=== PATIENT | female | born 1935 | race Caucasian/White ===

== ENCOUNTER 2021-05-25 09:52 | Inpatient (IN) ==
[2021-05-25] MEDS ORDERED: Ketorolac 30 MG/ML VIAL IVP ONE (10:21)
[2021-05-25 10:51] LABS: Hematocrit 37.2 % (35.3-44.9); Hemoglobin 12.5 g/dL (11.5-15.4); Mean Corpuscular HGB Conc 33.6 g/dL (31.6-35.5); Mean Corpuscular Hemoglobin 31.4 pg (28.0-33.3); Mean Corpuscular Volume 93.5 fL (83.0-100.0); Mean Platelet Volume 11.5 fL (9.4-12.4); Platelet Count 182 K/mcL (140-400); Red Blood Count 3.98 M/mcL (3.82-4.97); Red Cell Distribution Width 13.7 % (11.5-14.5)
[2021-05-25 11:14] LABS: Calcium 8.4 mg/dL (8.6-10.3); Potassium 4.3 mEq/L (3.5-5.1); Troponin I 0.03 ng/mL (< 0.04)
[2021-05-25 11:21] LABS: Eosinophils # 0.2 K/mcL (0.0-0.6); Monocytes # 0.4 K/mcL (0.0-1.3); Neutrophils # 2.5 K/mcL (1.6-8.9)
[2021-05-25 11:25] LABS: Platelet Estimate Normal (Normal); Reactive Lymphocytes Present (Not Present)
[2021-05-25 11:26] LABS: Large Platelets Present (Not Present)
[2021-05-25 11:29] LABS: Influenza A PCR Negative (Negative); Influenza B PCR Negative (Negative); Resp. Syncytial Virus PCR Negative (Negative)
[2021-05-25 11:36] LABS: SARS-CoV-2 by PCR (In House) Positive (Negative)
[2021-05-25] MEDS ORDERED: Azithromycin 250 MG TABLET PO ONE (11:39)
[2021-05-25] MEDS ORDERED: 0.9 % Sodium Chloride 1,000 ML IVC ONE (11:40)
[2021-05-25] MEDS ORDERED: Naloxone 0.4 MG/ML INJ IVP PRN (11:52)
[2021-05-25 13:01] LABS: Albumin 3.5 g/dL (3.5-5.7); Albumin/Globulin Ratio 1.1 (1.1-2.2); Bilirubin,Indirect 0.4 mg/dL (0.0-1.0); Bilirubin,Total 0.4 mg/dL (0.3-1.0); Globulin 3.3 g/dL (2.4-3.5); Total Protein 6.8 g/dL (6.4-8.9)
[2021-05-25 13:14] LABS: Bilirubin,Urine Negative (Negative); Blood,Urine Trace (Negative); Clarity,Urine Clear (Clear); Color,Urine Yellow (Yellow); Glucose,Urine (UA) Normal (Normal); Hyaline Casts,Urine Few per lpf (None Seen); Ketones,Urine Negative (Negative); Leukocyte Esterase,Urine Negative (Negative); Mucus,Urine Few per lpf (None-Few); Nitrite,Urine Negative (Negative); Protein,Urine 100 mg/dL (Neg-Trace); RBC,Urine 0-3 per hpf (0-3); Specific Gravity,Urine 1.026 (1.010-1.025); Squamous Epithelial Cell,Urine Few per hpf (None-Few); Urobilinogen,Urine Normal (Normal)
[2021-05-25] MEDS: *HR* Heparin 5,000 UNIT/ML VIAL SQ SCH (18:18)
[2021-05-26 02:07] LABS: Hematocrit 36.4 % (35.3-44.9); Immature Granulocytes % 0.8 % (0-4); Lymphocytes # 0.7 K/mcL (0.6-4.6); Lymphocytes % 20.5 %; Mean Corpuscular Hemoglobin 31.3 pg (28.0-33.3); Mean Corpuscular Volume 94.8 fL (83.0-100.0); Mean Platelet Volume 11.9 fL (9.4-12.4); Monocytes # 0.3 K/mcL (0.0-1.3); Monocytes % 9.3 %; Neutrophils # 2.5 K/mcL (1.6-8.9); Platelet Count 195 K/mcL (140-400); Red Blood Count 3.84 M/mcL (3.82-4.97); Red Cell Distribution Width 13.7 % (11.5-14.5); Segmented Neutrophils % 69.4 %; White Blood Count 3.6 K/mcL (4.3-11.1)
[2021-05-26 02:38] LABS: Albumin 3.3 g/dL (3.5-5.7); Albumin/Globulin Ratio 1.1 (1.1-2.2); Bilirubin,Total 0.3 mg/dL (0.3-1.0); Calcium 8.3 mg/dL (8.6-10.3); Globulin 3.1 g/dL (2.4-3.5); Phosphorous 3.8 mg/dL (2.7-4.5); Potassium 5.5 mEq/L (3.5-5.1); Total Protein 6.4 g/dL (6.4-8.9)
[2021-05-26 03:02] LABS: Platelet Estimate Normal (Normal)
[2021-05-26] MEDS: *HR* Heparin 5,000 UNIT/ML VIAL SQ SCH ×2 (05:29→18:09)
[2021-05-26] MEDS: Dexamethasone Sodium Phos/PF 10 MG/ML VIAL IVP SCH (09:10)
[2021-05-26] MEDS ORDERED: Remdesivir 200 MG in 0.9 % Sodium Chloride 100 ML IVPB ONE (13:53)
[2021-05-26] MEDS ORDERED: SODIUM ZIRCONIUM CYCLOSILICATE 5 GM POWD.PACK PO ONE (17:00)
[2021-05-27] MEDS: *HR* Heparin 5,000 UNIT/ML VIAL SQ SCH ×2 (05:23→17:04)
[2021-05-27 06:38] LABS: Hematocrit 40.6 % (35.3-44.9); Hemoglobin 13.3 g/dL (11.5-15.4); Mean Corpuscular HGB Conc 32.8 g/dL (31.6-35.5); Mean Corpuscular Hemoglobin 30.3 pg (28.0-33.3); Mean Corpuscular Volume 92.5 fL (83.0-100.0); Mean Platelet Volume 11.5 fL (9.4-12.4); Platelet Count 268 K/mcL (140-400); Red Blood Count 4.39 M/mcL (3.82-4.97); Red Cell Distribution Width 13.4 % (11.5-14.5)
[2021-05-27 06:39] LABS: White Blood Count 9.4 K/mcL (4.3-11.1)
[2021-05-27 07:02] LABS: Albumin 3.5 g/dL (3.5-5.7); Bilirubin,Total 0.4 mg/dL (0.3-1.0); Calcium 9.1 mg/dL (8.6-10.3); Globulin 3.5 g/dL (2.4-3.5)
[2021-05-27] MEDS ORDERED: Perflutren Lipid Microsphere 1.3 ML in 0.9 % Sodium Chloride 8.7 ML IVP PRN (09:39)
[2021-05-27] MEDS: Dexamethasone Sodium Phos/PF 10 MG/ML VIAL IVP SCH (09:57)
[2021-05-27] MEDS: Remdesivir 100 MG in 0.9 % Sodium Chloride 100 ML IVPB SCH (13:09)
[2021-05-27] MEDS: Melatonin 3 MG TABLET PO PRN (20:24)
[2021-05-28] MEDS: *HR* Heparin 5,000 UNIT/ML VIAL SQ SCH ×2 (05:56→17:09)
[2021-05-28 06:09] LABS: Hematocrit 43.9 % (35.3-44.9); Hemoglobin 14.3 g/dL (11.5-15.4); Mean Corpuscular HGB Conc 32.6 g/dL (31.6-35.5); Mean Corpuscular Hemoglobin 30.2 pg (28.0-33.3); Mean Corpuscular Volume 92.8 fL (83.0-100.0); Mean Platelet Volume 11.4 fL (9.4-12.4); Platelet Count 299 K/mcL (140-400); Red Blood Count 4.73 M/mcL (3.82-4.97); Red Cell Distribution Width 13.5 % (11.5-14.5); White Blood Count 11.2 K/mcL (4.3-11.1)
[2021-05-28] MEDS ORDERED: Ketorolac 30 MG/ML VIAL IVP ONE (06:12)
[2021-05-28 06:33] LABS: Albumin 3.8 g/dL (3.5-5.7); Bilirubin,Total 0.6 mg/dL (0.3-1.0); Calcium 9.4 mg/dL (8.6-10.3); Globulin 3.7 g/dL (2.4-3.5); Potassium 4.7 mEq/L (3.5-5.1); Total Protein 7.5 g/dL (6.4-8.9)
[2021-05-28] MEDS: Dexamethasone Sodium Phos/PF 10 MG/ML VIAL IVP SCH (08:40)
[2021-05-28] MEDS: Remdesivir 100 MG in 0.9 % Sodium Chloride 100 ML IVPB SCH (14:45)
[2021-05-28] MEDS: Melatonin 3 MG TABLET PO PRN (22:21)
[2021-05-29 02:11] LABS: Hematocrit 45.7 % (35.3-44.9); Hemoglobin 14.7 g/dL (11.5-15.4); Mean Corpuscular HGB Conc 32.2 g/dL (31.6-35.5); Mean Corpuscular Hemoglobin 30.2 pg (28.0-33.3); Mean Corpuscular Volume 93.8 fL (83.0-100.0); Mean Platelet Volume 11.4 fL (9.4-12.4); Platelet Count 304 K/mcL (140-400); Red Blood Count 4.87 M/mcL (3.82-4.97); Red Cell Distribution Width 13.5 % (11.5-14.5); White Blood Count 10.4 K/mcL (4.3-11.1)
[2021-05-29 02:31] LABS: Albumin 3.7 g/dL (3.5-5.7); Bilirubin,Total 0.7 mg/dL (0.3-1.0); Calcium 9.2 mg/dL (8.6-10.3); Globulin 3.7 g/dL (2.4-3.5); Potassium 5.7 mEq/L (3.5-5.1); Total Protein 7.4 g/dL (6.4-8.9)
[2021-05-29] MEDS: *HR* Heparin 5,000 UNIT/ML VIAL SQ SCH ×2 (05:40→16:11)
[2021-05-29] MEDS ORDERED: SODIUM ZIRCONIUM CYCLOSILICATE 5 GM POWD.PACK PO ONE (06:22)
[2021-05-29] MEDS ORDERED: Furosemide 20 MG/2 ML VIAL IVP SCH (09:00)
[2021-05-29] MEDS: Dexamethasone Sodium Phos/PF 10 MG/ML VIAL IVP SCH (09:22)
[2021-05-29 14:54] LABS: Calcium 9.3 mg/dL (8.6-10.3); Potassium 4.7 mEq/L (3.5-5.1)
[2021-05-29] MEDS ORDERED: *HR* Promethazine 25 MG/ML VIAL IM PRN (15:45)
[2021-05-29] MEDS: Ondansetron 4 MG/2 ML VIAL IVP PRN (16:11)
[2021-05-30] MEDS: Ondansetron 4 MG/2 ML VIAL IVP PRN (00:09)
[2021-05-30] MEDS: *HR* Heparin 5,000 UNIT/ML VIAL SQ SCH ×2 (05:20→17:56)
[2021-05-30 06:19] LABS: Hematocrit 47.9 % (35.3-44.9); Hemoglobin 15.6 g/dL (11.5-15.4); Mean Corpuscular HGB Conc 32.6 g/dL (31.6-35.5); Mean Corpuscular Hemoglobin 30.6 pg (28.0-33.3); Mean Corpuscular Volume 94.1 fL (83.0-100.0); Mean Platelet Volume 11.9 fL (9.4-12.4); Platelet Count 349 K/mcL (140-400); Red Blood Count 5.09 M/mcL (3.82-4.97); Red Cell Distribution Width 13.5 % (11.5-14.5); White Blood Count 14.2 K/mcL (4.3-11.1)
[2021-05-30 06:51] LABS: Albumin 3.7 g/dL (3.5-5.7); Albumin/Globulin Ratio 1.1 (1.1-2.2); Bilirubin,Total 0.8 mg/dL (0.3-1.0); Calcium 9.2 mg/dL (8.6-10.3); Globulin 3.5 g/dL (2.4-3.5); Potassium 4.8 mEq/L (3.5-5.1); Total Protein 7.2 g/dL (6.4-8.9)
[2021-05-30] MEDS: Dexamethasone Sodium Phos/PF 10 MG/ML VIAL IVP SCH (08:57)
[2021-05-30] MEDS: Melatonin 3 MG TABLET PO PRN (19:49)
[2021-05-31 01:29] LABS: Hematocrit 46.1 % (35.3-44.9); Hemoglobin 14.6 g/dL (11.5-15.4); Mean Corpuscular HGB Conc 31.7 g/dL (31.6-35.5); Mean Corpuscular Hemoglobin 29.9 pg (28.0-33.3); Mean Corpuscular Volume 94.5 fL (83.0-100.0); Mean Platelet Volume 12.1 fL (9.4-12.4); Platelet Count 244 K/mcL (140-400); Red Blood Count 4.88 M/mcL (3.82-4.97); Red Cell Distribution Width 13.3 % (11.5-14.5); White Blood Count 12.6 K/mcL (4.3-11.1)
[2021-05-31 02:01] LABS: Albumin 3.3 g/dL (3.5-5.7); Albumin/Globulin Ratio 1.2 (1.1-2.2); Bilirubin,Total 0.9 mg/dL (0.3-1.0); Calcium 8.5 mg/dL (8.6-10.3); Globulin 2.8 g/dL (2.4-3.5); Magnesium 2.3 mg/dL (1.6-2.6); Potassium 4.6 mEq/L (3.5-5.1); Total Protein 6.1 g/dL (6.4-8.9)
[2021-05-31] MEDS: *HR* Heparin 5,000 UNIT/ML VIAL SQ SCH ×2 (05:04→17:03)
[2021-05-31] MEDS: Dexamethasone Sodium Phos/PF 10 MG/ML VIAL IVP SCH (07:52)
[2021-05-31] MEDS: Gabapentin 100 MG CAPSULE PO SCH (20:47)
[2021-06-01] MEDS: *HR* Heparin 5,000 UNIT/ML VIAL SQ SCH ×2 (05:44→18:04)
[2021-06-01 06:04] LABS: Basophils % 0.3 %; Hematocrit 48.9 % (35.3-44.9); Hemoglobin 15.1 g/dL (11.5-15.4); Immature Granulocytes % 0.9 % (0-4); Lymphocytes # 0.7 K/mcL (0.6-4.6); Lymphocytes % 5.1 %; Mean Corpuscular HGB Conc 30.9 g/dL (31.6-35.5); Mean Corpuscular Hemoglobin 29.7 pg (28.0-33.3); Mean Corpuscular Volume 96.3 fL (83.0-100.0); Mean Platelet Volume 12.3 fL (9.4-12.4); Monocytes # 0.5 K/mcL (0.0-1.3); Monocytes % 3.9 %; Neutrophils # 12.4 K/mcL (1.6-8.9); Platelet Count 281 K/mcL (140-400); Red Blood Count 5.08 M/mcL (3.82-4.97); Red Cell Distribution Width 13.1 % (11.5-14.5); Segmented Neutrophils % 89.8 %; White Blood Count 13.8 K/mcL (4.3-11.1)
[2021-06-01 06:31] LABS: Albumin 3.3 g/dL (3.5-5.7); Albumin/Globulin Ratio 0.9 (1.1-2.2); Bilirubin,Total 0.9 mg/dL (0.3-1.0); Calcium 9.2 mg/dL (8.6-10.3); Globulin 3.6 g/dL (2.4-3.5); Magnesium 2.4 mg/dL (1.6-2.6); Potassium 4.8 mEq/L (3.5-5.1); Total Protein 6.9 g/dL (6.4-8.9)
[2021-06-01] MEDS ORDERED: Furosemide 20 MG/2 ML VIAL IVP SCH (09:00)
[2021-06-01] MEDS: Gabapentin 100 MG CAPSULE PO SCH ×2 (10:07→20:02)
[2021-06-01] MEDS: Dexamethasone Sodium Phos/PF 10 MG/ML VIAL IVP SCH (10:07)
[2021-06-01] MEDS: Ascorbic Acid 500 MG TABLET PO SCH (10:08)
[2021-06-02] MEDS: *HR* Heparin 5,000 UNIT/ML VIAL SQ SCH (06:25)
[2021-06-02 06:49] LABS: Basophils % 0.3 %; Eosinophils % 0.4 %; Hematocrit 41.3 % (35.3-44.9); Immature Granulocytes % 0.8 % (0-4); Lymphocytes # 0.9 K/mcL (0.6-4.6); Lymphocytes % 8.9 %; Mean Corpuscular HGB Conc 32.4 g/dL (31.6-35.5); Mean Corpuscular Volume 95.6 fL (83.0-100.0); Monocytes # 0.4 K/mcL (0.0-1.3); Neutrophils # 8.9 K/mcL (1.6-8.9); Platelet Count 195 K/mcL (140-400); Red Blood Count 4.32 M/mcL (3.82-4.97); Red Cell Distribution Width 13.2 % (11.5-14.5); Segmented Neutrophils % 85.6 %; White Blood Count 10.3 K/mcL (4.3-11.1)
[2021-06-02 06:53] LABS: Hemoglobin 13.4 g/dL (11.5-15.4)
[2021-06-02 07:06] LABS: Albumin 3.1 g/dL (3.5-5.7); Albumin/Globulin Ratio 0.9 (1.1-2.2); Bilirubin,Total 0.7 mg/dL (0.3-1.0); Calcium 9.2 mg/dL (8.6-10.3); Globulin 3.5 g/dL (2.4-3.5); Potassium 4.6 mEq/L (3.5-5.1); Total Protein 6.6 g/dL (6.4-8.9)
[2021-06-02] MEDS: Dexamethasone Sodium Phos/PF 10 MG/ML VIAL IVP SCH (09:48)
[2021-06-02] MEDS: Gabapentin 100 MG CAPSULE PO SCH ×2 (09:49→20:24)
[2021-06-02] MEDS: Ascorbic Acid 500 MG TABLET PO SCH (09:49)
[2021-06-02] MEDS: Sennosides 8.6 MG TABLET PO SCH (09:49)
[2021-06-02] MEDS ORDERED: *HR* Metoprolol 5 MG/5 ML VIAL IVP ONE ×3 (14:20→19:18)
[2021-06-02] MEDS ORDERED: 0.9 % Sodium Chloride 1,000 ML IVC ONE (16:47)
[2021-06-02] MEDS ORDERED: *HR* Metoprolol 5 MG/5 ML VIAL IVP PRN (16:48)
[2021-06-02] MEDS ORDERED: Metoprolol XL (24 HR) Succ 25 MG TAB.ER.24H PO SCH (17:00)
[2021-06-02] MEDS: *HR* Enoxaparin 30 MG/0.3 ML SYRINGE SQ SCH (17:50)
[2021-06-02] MEDS ORDERED: Albumin 25% 25gram/100mL 25 GM/100 ML IV.SOLN IVPB ONE ×2 (20:49→23:00)
[2021-06-02] MEDS ORDERED: 0.9 % Sodium Chloride 500 ML IVC ONE (23:11)
[2021-06-03] MEDS ORDERED: Amiodarone Premix 150 MG/100 ML BAG IVPB ONE ×3 (01:00→01:15)
[2021-06-03] MEDS ORDERED: Amiodarone Premix 360 MG/200 ML BAG IVC ONE (01:00)
[2021-06-03] MEDS ORDERED: 0.9 % Sodium Chloride 500 ML ONE (03:01)
[2021-06-03] MEDS ORDERED: 0.9 % Sodium Chloride 500 ML IV ONE (03:04)
[2021-06-03 04:33] LABS: Basophils % 0.1 %; Hematocrit 37.8 % (35.3-44.9); Hemoglobin 12.2 g/dL (11.5-15.4); Immature Granulocytes % 0.9 % (0-4); Lymphocytes # 0.4 K/mcL (0.6-4.6); Lymphocytes % 2.7 %; Mean Corpuscular HGB Conc 32.3 g/dL (31.6-35.5); Mean Corpuscular Hemoglobin 31.1 pg (28.0-33.3); Mean Corpuscular Volume 96.4 fL (83.0-100.0); Mean Platelet Volume 12.9 fL (9.4-12.4); Monocytes # 0.5 K/mcL (0.0-1.3); Monocytes % 3.1 %; Neutrophils # 14.6 K/mcL (1.6-8.9); Platelet Count 226 K/mcL (140-400); Red Blood Count 3.92 M/mcL (3.82-4.97); Red Cell Distribution Width 13.4 % (11.5-14.5); Segmented Neutrophils % 93.2 %
[2021-06-03 04:35] LABS: White Blood Count 15.7 K/mcL (4.3-11.1)
[2021-06-03 04:59] LABS: Albumin 3.6 g/dL (3.5-5.7); Albumin/Globulin Ratio 1.1 (1.1-2.2); Bilirubin,Total 0.9 mg/dL (0.3-1.0); Calcium 9.3 mg/dL (8.6-10.3); Globulin 3.2 g/dL (2.4-3.5); Magnesium 2.4 mg/dL (1.6-2.6); Potassium 4.8 mEq/L (3.5-5.1); Total Protein 6.8 g/dL (6.4-8.9)
[2021-06-03] MEDS: *HR* Enoxaparin 30 MG/0.3 ML SYRINGE SQ SCH ×2 (05:15→17:59)
[2021-06-03] MEDS: Amiodarone Premix 360 MG/200 ML BAG IVC SCH ×2 (08:13→21:00)
[2021-06-03] MEDS: Sennosides 8.6 MG TABLET PO SCH (08:14)
[2021-06-03] MEDS: Ascorbic Acid 500 MG TABLET PO SCH (08:14)
[2021-06-03] MEDS: Dexamethasone Sodium Phos/PF 10 MG/ML VIAL IVP SCH (08:14)
[2021-06-03] MEDS: Gabapentin 100 MG CAPSULE PO SCH ×2 (08:14→22:50)
[2021-06-03] MEDS ORDERED: *HR* LORazepam 2 MG/ML VIAL IVP ONE (20:37)
[2021-06-03] MEDS ORDERED: *HR* Heparin 5,000 UNIT/ML VIAL IVP PRN ×2 (20:51)
[2021-06-03] MEDS ORDERED: Heparin 25,000UNIT/250ML 1/2NS 25,000 UNIT/250 ML IV.SOLN IVC SCH (21:00)
[2021-06-03 21:15] LABS: ABG Base Excess -2 mEq/L (-2 to 3); ABG HCO3 21 mEq/L (21-27); ABG Oxygen Saturation 88 % (95-98); ABG PCO2 29 mmHg (35-45); ABG PH 7.45 pH Units (7.32-7.45); ABG PO2 51 mmHg (85-104); ABG TCO2 21 mEq/L (20-26)
[2021-06-03] MEDS ORDERED: Dexmedetomidine HCl 400 MCG/100 ML MLS IVC SCH (22:45)
[2021-06-04 02:45] LABS: Basophils % 0.2 %; Hematocrit 37.3 % (35.3-44.9); Hemoglobin 12.5 g/dL (11.5-15.4); Immature Granulocytes % 0.6 % (0-4); Lymphocytes # 0.3 K/mcL (0.6-4.6); Lymphocytes % 1.9 %; Mean Corpuscular HGB Conc 33.5 g/dL (31.6-35.5); Mean Corpuscular Hemoglobin 31.2 pg (28.0-33.3); Mean Platelet Volume 12.9 fL (9.4-12.4); Monocytes # 0.3 K/mcL (0.0-1.3); Monocytes % 2.2 %; Neutrophils # 12.3 K/mcL (1.6-8.9); Platelet Count 262 K/mcL (140-400); Red Blood Count 4.01 M/mcL (3.82-4.97); Red Cell Distribution Width 13.3 % (11.5-14.5); Segmented Neutrophils % 95.1 %
[2021-06-04 03:04] LABS: Albumin 3.3 g/dL (3.5-5.7); Albumin/Globulin Ratio 0.9 (1.1-2.2); Bilirubin,Total 0.5 mg/dL (0.3-1.0); Calcium 9.5 mg/dL (8.6-10.3); Globulin 3.6 g/dL (2.4-3.5); Magnesium 2.5 mg/dL (1.6-2.6); Potassium 4.6 mEq/L (3.5-5.1); Total Protein 6.9 g/dL (6.4-8.9)
[2021-06-04] MEDS ORDERED: *HR* Enoxaparin 80 MG/0.8 ML SYRINGE SQ SCH ×2 (06:00)
[2021-06-04 07:17] VITALS: TEMP 97.6
[2021-06-04] MEDS: Amiodarone Premix 360 MG/200 ML BAG IVC SCH (08:15)
[2021-06-04] MEDS: Dexamethasone Sodium Phos/PF 10 MG/ML VIAL IVP SCH (10:12)
[2021-06-04] MEDS: Sennosides 8.6 MG TABLET PO SCH (10:12)
[2021-06-04] MEDS: Gabapentin 100 MG CAPSULE PO SCH (10:12)
[2021-06-04] MEDS: Ascorbic Acid 500 MG TABLET PO SCH (10:12)
[2021-06-04 11:13] VITALS: BP 95/67
[2021-06-04] MEDS ORDERED: *HR* Metoprolol 5 MG/5 ML VIAL IVP ONE (12:02)
[2021-06-04] MEDS ORDERED: Atropine 1% Opth Drops 100 DROP/5 ML BOTTLE SL PRN (13:42)
[2021-06-04] MEDS ORDERED: *HR* LORazepam 2 MG/ML VIAL IVP PRN ×2 (13:42→18:18)
[2021-06-04] MEDS ORDERED: Morphine Sulfate 2 MG/ML SYRINGE IVP PRN (13:42)
[2021-06-04] MEDS ORDERED: Scopolamine Patch 1.5 MG PATCH.TD72 TD ONE ×2 (13:44→18:23)
[2021-06-04 17:05] VITALS: PULSE 116; O2SAT 86
[2021-06-04] MEDS ORDERED: *HR* Metoprolol 5 MG/5 ML VIAL IVP SCH (18:00)
[2021-06-04] MEDS: Morphine Sulfate 2 MG/ML SYRINGE IVP PRN ×2 (18:51→21:20)
== END 2021-06-04 23:19 | disposition expired | DRG 137 ==
LOC: EMEROOARM 09:52 → 3ANU 09:52 → SUATTDRO 15:58 → 2NNU 06-03 03:04
PROVIDERS: ADMIT Internal Medicine; ATTEND Family Medicine